=== PATIENT | female | born 1955 | race African-American/Black ===

== ENCOUNTER → 2016-09-21 | Outpatient (CLI) | payer OTHER ==
[2015-04-04 19:11] VITALS: BP 121/70
[~2016-09-21] MED LIST: ALPR1TAB2 PO; ESOM40CA PO; FLUT1DIS3 IH; IOHEXOL 240 MG/ML 50ML VIAL. PO ONE; IOHEXOL 300 MG/ML 75 ML VIAL IV ONE; IPRA3AMP23 IH; Ipratropium/Albuterol Sulfate NEB; METF10002 PO; OXYC1TAB9 PO; PRED20TA PO; Promethazine Hcl/Codeine PO
[2016-09-21 15:13] LABS: CREATININE 1.1 mg/dL (0.6-1.0); GFR 61.5
--- NOTE | 2016-09-21 17:02 | RAD ---
CT abdomen and pelvis with IV contrast History: Abdominal pain, nausea and constipation for numerous years. Comparison: CT abdomen pelvis 03/31/2012 Technique: After administration of oral contrast only, helical CT of the abdomen and pelvis was performed from the lung bases through the ischial tuberosities. Axial, sagittal, and coronal reconstructions were obtained. No intravenous contrast was administered as proper IV access cannot be obtained. One or more of the following individualized dose reduction techniques were utilized for the study: Automated exposure control Adjustment of mA and/or kV according to patient's size Use of iterative reconstruction technique. Findings: Evaluation of solid organs is limited by lack of intravenous contrast. Gallbladder is absent. Liver, spleen, pancreas, and bilateral adrenal glands are unremarkable. Bilateral kidneys are without evidence of stone or obstruction. There is no evidence of bowel obstruction. No free air or free fluid is identified in the abdomen or pelvis. Uterus demonstrates changes of bilateral tubal ligation. There are 3 small fat-containing ventral hernias. Appendix appears within normal limits. Urinary bladder is unremarkable. Impression: 1. No acute abnormality identified in the abdomen or pelvis. 2. Several small fat-containing umbilical hernias.
== END | disposition home or self-care (01) ==
LOC: CT 14:55
PROVIDERS: ATTEND Internal Medicine Gastroenterology
DX: K42.9 Umbilical hernia without obstruction or gangrene (principal)
CPT/HCPCS: 36415; 74176; 82565; Q9966; Q9967

== ENCOUNTER → 2016-10-22 | Day surgery (SDC) | payer OTHER ==
[~2016-10-22] MED LIST changes: -IOHEXOL 240 MG/ML 50ML VIAL. PO ONE; -IOHEXOL 300 MG/ML 75 ML VIAL IV ONE; +IV RINGERS,LACTATED 1000ML 1,000 ML IV SCH; +METF-620 PO; -METF10002 PO; +PROPOFOL 20 ML IV ONE
[2016-10-22 11:11] VITALS: BP 12/58
--- NOTE | 2016-10-22 11:23 | HP ---
ADMIT DATE: 10/22/2016 HISTORY OF PRESENT ILLNESS: A 60-year-old -German female whose past medical history is significant for anxiety, COPD, chronic abdominal pain worsening constipation, increased change in bowel habits, despite being on stable doses of OxyContin. Previous colonoscopy has been unrevealing, with Dr. Slade. She has also had increased nausea, but no dysphagia or odynophagia. With continued symptoms, she requests additional evaluation. PAST MEDICAL HISTORY: Anxiety, chronic pain, diabetes, depression. MEDICATIONS: Include Xanax, Nexium, Advair, DuoNeb, metformin, oxycodone, prednisone, atropine, albuterol, promethazine. ALLERGIES: She has no allergies. SOCIAL HISTORY: She is a former smoker, social, nondrinker. PAST SURGICAL HISTORY: Cholecystectomy, eye surgery, and inguinal hernia repair. REVIEW OF SYSTEMS: Per records. PHYSICAL EXAMINATION: GENERAL: Reveals a well-nourished, well-developed -German female. VITAL SIGNS: Temperature is 97, pulse 65, respirations 18. HEENT: Normocephalic and atraumatic head. Pupils and extraocular muscles not tested. Sclerae anicteric. NECK: Supple. LUNGS: Clear. CARDIOVASCULAR: Reveals an S1, S2 without S3, S4 or appreciable murmur. ABDOMEN: Soft abdomen, normal bowel sounds, without appreciable hepatosplenomegaly. EXTREMITIES: Reveals no cyanosis, clubbing, or edema. IMPRESSION: Change in bowel habits, constipation, diffuse abdominal pain, etiology is to be determined. Differential includes adhesions, colon cancer, inflammatory bowel disease, diverticular disease. Previous CT scan was unrevealing for additional pathology. Therefore, recommend colonoscopy, this is unrevealing a small bowel series may be pursued. I thank Dr. Lares for allowing us to consult and participate in patient's care. RADHA SHAW MD DR: JAMISON/varinder JOB#: [id number] / [id number]
== END | disposition home or self-care (01) ==
LOC: ENDOS 09:53
PROVIDERS: ATTEND Internal Medicine Gastroenterology
DX: K64.0 First degree hemorrhoids (principal); J44.9 Chronic obstructive pulmonary disease, unspecified; M19.90 Unspecified osteoarthritis, unspecified site; F41.9 Anxiety disorder, unspecified; E11.9 Type 2 diabetes mellitus without complications; Z98.42 Cataract extraction status, left eye; Z86.69 Personal history of other diseases of the nervous system and sense organs; Z90.49 Acquired absence of other specified parts of digestive tract; Z98.51 Tubal ligation status; Z87.891 Personal history of nicotine dependence
CPT/HCPCS: 45378; J2704

== ENCOUNTER → 2017-07-27 | Outpatient (CLI) | payer OTHER | END | disposition home or self-care (01) | LOC: MAMMO 13:19 | DX: Z12.31 Encounter for screening mammogram for malignant neoplasm of breast (principal) | CPT/HCPCS: 77067 ==

== ENCOUNTER → 2017-07-28 | Outpatient (CLI) | payer OTHER | END | disposition home or self-care (01) | LOC: NM 10:47 | DX: K30 Functional dyspepsia (principal); K86.1 Other chronic pancreatitis | CPT/HCPCS: 78264; A9541 ==

== ENCOUNTER → 2018-01-26 | Day surgery (SDC) | payer OTHER ==
[~2018-01-26] MED LIST changes: +GABA-586 PO; +HYDROmorphone 2 MG/ML VIAL IV PRN; +LIDOCAINE 1% PF 2 ML VIAL. ID PRN; +LIDOCAINE 2% PF Vial for OR 5 ML VIAL. ONE; -METF-620 PO; +METF10007 PO; +MORPHINE SULFATE 2 MG/ML VIAL. IV PRN; +ONDANSETRON PF 4 MG/2 ML VIAL. IV PRN; +OXYC-411 PO; -OXYC1TAB9 PO; +PROCHLORPERAZINE 10 MG/2 ML VIAL. IV PRN; +fentaNYL PF VIAL 100 MCG/2 ML VIAL IV PRN
[2018-01-26 14:17] VITALS: BP 117/68
--- NOTE | 2018-01-26 23:12 | CONS ---
DATE OF CONSULTATION: 01/26/2018 REASON FOR CONSULTATION: Abdominal pain, status post cholecystectomy. HISTORY OF PRESENT ILLNESS: This is a 62-year-old -[place] female whose past medical history is significant for diabetes, depression, chronic pain, anxiety and status post cholecystectomy, is seen with recurrent epigastric abdominal pain which radiates through to her back. Previous colonoscopy unrevealing with Dr. Slade, with recurrent nausea and pain, with Emergency Room visitation. She is here today for further evaluation. PAST MEDICAL HISTORY: Chronic pain, diabetes, neuropathy, status post cholecystectomy and tubal ligation. ALLERGIES: None. MEDICATIONS: Include Xanax, Advair, gabapentin, albuterol, metformin, oxycodone, Ativan and promethazine. FAMILY AND SOCIAL HISTORY: Former smoker. She is a social drinker. PAST SURGICAL HISTORY: Status post cholecystectomy, eye surgery, inguinal hernia repair and tubal ligation. REVIEW OF SYSTEMS: Per records. PHYSICAL EXAMINATION: GENERAL: Reveals a well-nourished, well-developed -[place] female who is alert and cooperative, in no acute distress. VITAL SIGNS: Temperature is 97, pulse is 94 and respirations 20. HEENT EXAMINATION: Reveals normocephalic, atraumatic head. Pupils and extraocular muscles are not tested. Sclerae are anicteric. NECK: Supple. LUNGS: Clear. CARDIOVASCULAR EXAMINATION: Reveals an S1, S2, without S3, S4 or appreciable murmur. ABDOMEN: Exam reveals soft abdomen, epigastric tenderness to deep palpation. No appreciable hepatosplenomegaly, with a right upper quadrant cholecystectomy incision. EXTREMITIES: Exam reveals no cyanosis, clubbing or edema. IMPRESSION AND PLAN: Abdominal pain, status post cholecystectomy, the etiology is to be determined. Peptic ulcer disease, gastroparesis, malignancy and recurrent hernia certainly are in the differential as well as retained common duct stone. Therefore, I will do an upper endoscopy. If that is unrevealing, then further consideration of ultrasound and/or CAT scan of the abdomen would be pursued. RADHA SHAW MD DR: JAMISON/varinder JOB#: [id number] / [id number]
== END | disposition home or self-care (01) ==
LOC: ENDOS 12:10
PROVIDERS: ATTEND Internal Medicine Gastroenterology
DX: K29.50 Unspecified chronic gastritis without bleeding (principal); F32.9 Major depressive disorder, single episode, unspecified; F41.9 Anxiety disorder, unspecified; G89.29 Other chronic pain; E11.40 Type 2 diabetes mellitus with diabetic neuropathy, unspecified; Z98.51 Tubal ligation status; Z79.84 Long term (current) use of oral hypoglycemic drugs; Z79.899 Other long term (current) drug therapy; Z79.01 Long term (current) use of anticoagulants; Z87.891 Personal history of nicotine dependence; Z72.89 Other problems related to lifestyle; Z90.49 Acquired absence of other specified parts of digestive tract; Z98.890 Other specified postprocedural states
CPT/HCPCS: 43235; J2001; J2704

== ENCOUNTER → 2018-12-14 | Outpatient (CLI) | payer OTHER ==
[2018-01-26 14:17] VITALS: BP 117/68
[~2018-12-14] MED LIST changes: -GABA-586 PO; +GABA300C18 PO; -HYDROmorphone 2 MG/ML VIAL IV PRN; -IV RINGERS,LACTATED 1000ML 1,000 ML IV SCH; -LIDOCAINE 1% PF 2 ML VIAL. ID PRN; -LIDOCAINE 2% PF Vial for OR 5 ML VIAL. ONE; -MORPHINE SULFATE 2 MG/ML VIAL. IV PRN; -ONDANSETRON PF 4 MG/2 ML VIAL. IV PRN; -PROCHLORPERAZINE 10 MG/2 ML VIAL. IV PRN; -PROPOFOL 20 ML IV ONE; -fentaNYL PF VIAL 100 MCG/2 ML VIAL IV PRN
--- NOTE | 2018-12-15 11:28 | RAD ---
DATE: 12/15/2018. EXAM: DIGITAL SCREEN BILAT W/CAD HISTORY: Routine screening. COMPARISON: Previous mammogram from 2018 and 2016. This study was interpreted with the benefit of Computerized Aided Detection (CAD). FINDINGS: Breast Density: FATTY The Breast Parenchyma is primarily fatty replaced. Breast parenchyma level density A.. Skin and nipples are within normal limits. No suspicious calcifications, spiculated mass or area of architectural distortion. IMPRESSION: No mammographic evidence of malignancy. Stable mammogram. BI-RADS CATEGORY: 2 BENIGN FINDING(S) RECOMMENDED FOLLOW-UP: 12M 12 MONTH FOLLOW-UP PQRS compliance statement: Patient information was entered into a reminder system with a target due date for the next mammogram. Mammography is a sensitive method for finding small breast cancers, but it does not detect them all and is not a substitute for careful clinical examination. A negative mammogram does not negate a clinically suspicious finding and should not result in delay in biopsying a clinically suspicious abnormality. "Our facility is accredited by the [employer] Mammography Program."
== END | disposition home or self-care (01) ==
LOC: MAMMO 13:47
PROVIDERS: ATTEND Family Medicine
DX: Z12.31 Encounter for screening mammogram for malignant neoplasm of breast (principal)
CPT/HCPCS: 77067

== ENCOUNTER → 2019-08-08 | Outpatient (CLI) | payer OTHER ==
[2018-01-26 14:17] VITALS: BP 117/68
--- NOTE | 2019-08-08 16:39 | RAD ---
AP and Lateral Views of the Chest 08/08/2019 12:00 AM Indication: Follow-up, pneumonia Comparison: Chest radiograph April 04, 2015 Findings: There is mild opacity left lung base with appearance favoring atelectasis over infiltrate. No pneumothorax or effusion is seen. Portal and cardiomegaly is stable. No acute osseous changes are seen. IMPRESSION: Mild opacity left lung base with an appearance favoring atelectasis over infiltrate. Electronically signed by: Anup Mcguire MD (08/08/2019 4:36 PM) [id number]
== END | disposition home or self-care (01) ==
LOC: RAD 15:34
PROVIDERS: ATTEND Family Medicine
DX: R91.8 Other nonspecific abnormal finding of lung field (principal); Z09 Encounter for follow-up examination after completed treatment for conditions other than malignant neoplasm; I51.7 Cardiomegaly; J98.11 Atelectasis
CPT/HCPCS: 71046

== ENCOUNTER → 2019-11-21 | Outpatient (CLI) | payer MEDICAID ==
[2018-01-26 14:17] VITALS: BP 117/68
--- NOTE | 2019-11-21 17:04 | KCIC ---
EXAM: MRI left shoulder without contrast INDICATION: Dysfunctional left rotator cuff. Left shoulder pain worsening range of motion in recent months. COMPARISON: None TECHNIQUE: Multiplanar, multisequence imaging of the left shoulder Without contrast. FINDINGS: The exam is limited by extensive motion artifact. ROTATOR CUFF: There is a suspected full-thickness tear of the anterior and mid supraspinatus tendon measuring at least 1.9 x 1.3 cm (image 13, series 11, image 16, series 7), with tendinopathy of the posterior supraspinatus and infraspinatus tendon. The scapularis and teres minor tendons are intact. There is moderate fatty atrophy of the supraspinatus and infraspinatus muscles. No rotator cuff muscle edema. LABRUM: Evaluation of the labrum is limited by motion artifact. No discrete tear. BICEPS TENDON: Intra-articular biceps tendon is difficult to visualize due to motion artifact but likely at least partially intact. Extra-articular biceps tendon is intact. ACROMIOCLAVICULAR JOINT: Mild degenerative joint disease. GLENOHUMERAL JOINT: Cartilage appears grossly intact without large full thickness defect, however motion artifact on coronal series limits evaluation. No acute fracture. Alignment is normal. There are cystic changes in the greater tuberosity. OTHER: Joint effusion communicating with the subacromial-subdeltoid bursa. IMPRESSION:Very limited exam due to extensive motion artifact. There appears to be a full-thickness tear of the anterior and mid supraspinatus tendon measuring at least 1.9 cm in greatest diameter. Probable tendinopathy the posterior supraspinatus and infraspinatus tendons. Moderate fatty atrophy of the supraspinatus and infraspinatus muscles. Electronically signed by: Ami Neri MD (11/21/2019 5:01 PM) [id number]
== END | disposition home or self-care (01) ==
LOC: KCIC MRI 14:54
PROVIDERS: ATTEND Family Medicine
DX: M19.012 Primary osteoarthritis, left shoulder (principal); M67.912 Unspecified disorder of synovium and tendon, left shoulder
CPT/HCPCS: 73221